=== PATIENT | male | born 1965 | race Caucasian/White ===

== ENCOUNTER 2018-03-05 13:30 | Emergency (ER) | payer OTHER ==
[~2018-03-05] VITALS: Wt 104.3 kg
[2018-03-05 14:07] LABS: BASO # 0.2 10*3/uL (0.0-0.1); BASO % 1.7 % (0.0-1.0); EOS # 0.2 10*3/uL (0.0-0.4); EOS % 1.5 % (1.0-4.0); HEMATOCRIT 46.8 % (42.0-52.0); HEMOGLOBIN 15.8 g/dl (14.0-18.0); LYMPH # 2.5 10*3/uL (1.3-4.4); LYMPH % 23.4 % (27.0-41.0); MEAN CORPUSCULAR HGB 34.4 pg (27.0-31.0); MEAN CORPUSCULAR HGB CONC 33.8 g/dl (33.0-37.0); MEAN PLATELET VOLUME 9.5 fl (9.6-12.3); MONO # 0.9 10*3/uL (0.1-1.0); MONO % 8.2 % (3.0-9.0); NEUT # 6.9 10*3/uL (2.3-7.9); PLATELET COUNT AUTOMATED 260 10*3/uL (130-400); RED BLOOD COUNT 4.59 10*6/uL (4.50-5.90); WHITE BLOOD COUNT 10.8 10*3/uL (4.8-10.8)
[2018-03-05 14:24] LABS: ALBUMIN 3.4 gm/dl (3.1-4.5); ALKALINE PHOSPHATASE 58 U/L (45-117); BUN 15 mg/dl (7-24); CHLORIDE 107 mmol/L (98-107); CREATININE 1.02 mg/dL (0.70-1.30); POTASSIUM 4.2 mmol/L (3.5-5.1); SGOT/AST 33 IU/L (3-35); SGPT/ALT 68 U/L (12-78); SODIUM 138 mmol/L (136-145); TOTAL PROTEIN 6.7 gm/dL (6.4-8.2)
[2018-03-05] MEDS ORDERED: OMNICEF300 MG PO (14:33)
== END 2018-03-05 14:37 | disposition home or self-care (01) ==
LOC: ED 13:30
PROVIDERS: Nurse Practitioner Family
DX: H66.91 Otitis media, unspecified, right ear (principal); F17.200 Nicotine dependence, unspecified, uncomplicated; Z88.5 Allergy status to narcotic agent

== ENCOUNTER → 2018-06-02 | Day surgery (SDC) | payer OTHER ==
[~2018-06-02] VITALS: Ht 187.9 cm; Wt 63.5 kg
[~2018-06-02] MED LIST: BLOOD PRESSURE; ELIQUIS5 M1 PO; ENTRESTO 97 MG1 EACH PO; METOPROLOL SUCC50 M1 PO; OMNICEF300 MG PO
[2018-06-02 12:57] VITALS: BP 118/82
[2018-06-02 13:58] VITALS: BP 105/76
[2018-06-02 14:13] VITALS: BP 115/72
== END | disposition home or self-care (01) ==
LOC: SDC 06-01 10:15
DX: I11.0 Hypertensive heart disease with heart failure (principal); I50.1 Left ventricular failure, unspecified; I48.91 Unspecified atrial fibrillation; Z79.899 Other long term (current) drug therapy; Z88.8 Allergy status to other drugs, medicaments and biological substances; Z72.0 Tobacco use; Z79.01 Long term (current) use of anticoagulants; Z98.890 Other specified postprocedural states

== ENCOUNTER → 2018-08-29 | Outpatient (CLI) | payer OTHER | END | disposition home or self-care (01) | LOC: CARD 12:00 | DX: I50.43 Acute on chronic combined systolic (congestive) and diastolic (congestive) heart failure (principal); I48.91 Unspecified atrial fibrillation ==

== ENCOUNTER 2019-05-04 09:55 | Emergency (ER) | payer OTHER ==
[~2019-05-04] VITALS: Wt 122.5 kg
[2019-05-04 10:48] LABS: HEMATOCRIT 43.8 % (42.0-52.0); HEMOGLOBIN 15.3 g/dl (14.0-18.0); MEAN CELL VOLUME 103.8 fl (80.0-94.0); MEAN CORPUSCULAR HGB 36.3 pg (27.0-31.0); MEAN CORPUSCULAR HGB CONC 34.9 g/dl (33.0-37.0); MEAN PLATELET VOLUME 8.8 fl (9.6-12.3); PLATELET COUNT AUTOMATED 227 10*3/uL (130-400); RED BLOOD COUNT 4.22 10*6/uL (4.50-5.90); RED CELL DISTRI WIDTH 11.3 % (0-14.5); WHITE BLOOD COUNT 14.2 10*3/uL (4.8-10.8)
[2019-05-04 11:06] LABS: TOTAL CELLS COUNTED 100 #CELLS
[2019-05-04 11:17] LABS: PLATELET SUFFICIENCY NORMAL (NORMAL)
[2019-05-04 11:59] LABS: ALBUMIN 3.8 gm/dl (3.1-4.5); ALKALINE PHOSPHATASE 70 U/L (45-117); BUN 11 mg/dl (7-24); CHLORIDE 97 mmol/L (98-107); POTASSIUM 4.5 mmol/L (3.5-5.1); SGOT/AST 20 IU/L (3-35); SGPT/ALT 53 U/L (12-78); SODIUM 132 mmol/L (136-145); TOTAL PROTEIN 7.8 gm/dL (6.4-8.2)
[2019-05-04] MEDS ORDERED: CLINDAMYCIN HC300 MG PO (14:19)
[2019-05-05] MEDS ORDERED: ANAPROX DS550 MG PO (19:38)
== END 2019-05-04 14:34 | disposition home or self-care (01) ==
LOC: ED 09:55
PROVIDERS: Physician Assistant
DX: K04.7 Periapical abscess without sinus (principal); F17.200 Nicotine dependence, unspecified, uncomplicated; Z88.1 Allergy status to other antibiotic agents; Z88.5 Allergy status to narcotic agent; Z79.899 Other long term (current) drug therapy

== ENCOUNTER 2019-05-05 19:24 | Emergency (ER) | payer OTHER ==
[~2019-05-05] VITALS: Ht 187.9 cm; Wt 122.5 kg
[~2019-05-05 19:24] MED LIST changes: +CLINDAMYCIN HC300 MG PO
[2019-05-05] MEDS ORDERED: ANAPROX DS550 MG PO (19:38)
== END 2019-05-05 19:55 | disposition home or self-care (01) ==
LOC: ED 19:24
DX: K04.7 Periapical abscess without sinus (principal); F17.200 Nicotine dependence, unspecified, uncomplicated; Z79.2 Long term (current) use of antibiotics; Z88.1 Allergy status to other antibiotic agents; Z88.5 Allergy status to narcotic agent; Z79.899 Other long term (current) drug therapy

== ENCOUNTER 2019-05-07 01:27 | Inpatient (IN) | payer OTHER ==
[~2019-05-07] VITALS: Ht 187.9 cm; Wt 120.9 kg
[2019-05-07] VITALS (7 sets, daily range): BP systolic 99–136; BP diastolic 60–77
--- NOTE | ~2019-05-07 | CON ---
[place], [place] REPORT OF CONSULTATION NAME: LORNA GAYTAN UNIT #: [id number] ROOM: 531 DOCTOR: KARUNA WIN DMD BIRTHDATE: [birth year] DOS: 05/07/2019 HISTORY OF PRESENT ILLNESS: The patient was admitted for a left-sided facial swelling. The patient states that he was seen at his private dentist for extraction of teeth on the lower left and was referred to the ER due to the swelling noted and difficulty breathing and swallowing. The patient states that there has been an improvement in his dyspnea and dysphagia after antibiotic therapy; however, the swelling persists and there is substantial trismus. On exam, moderate left-sided facial swelling extending from the zygomatic arch down to the inferior border of the mandible. Substantial pain on palpation is noted. The patient has roughly 10 mm maximum opening due to trismus. Intraoral exam is difficult due to limited opening. Intraorally, multiple caries noted including teeth caries to the gumline in obvious need of extraction. Minimal buccal space swelling is noted and the peak area of tenderness is submandibular extraorally. Unable to palpate sublingual area, submental area. RECOMMENDATIONS: Recommend the patient be referred to an oral surgeon or ENT for potential extraoral drainage and then extraction of the offending teeth once the trismus has cleared. KARUNA WIN DMD CM:CONSTR:REPORT OF CONSULTATION 1156 05/07/19 2337 interface
[~2019-05-07 01:27] MED LIST changes: +ANAPROX DS550 MG PO
[2019-05-07 02:40] LABS: BASO # 0.1 10*3/uL (0.0-0.1); BASO % 0.8 % (0.0-1.0); EOS # 0.1 10*3/uL (0.0-0.4); EOS % 0.8 % (1.0-4.0); HEMOGLOBIN 14.2 g/dl (14.0-18.0); LYMPH # 2.5 10*3/uL (1.3-4.4); LYMPH % 17.3 % (27.0-41.0); MEAN CELL VOLUME 104.9 fl (80.0-94.0); MEAN CORPUSCULAR HGB 36.3 pg (27.0-31.0); MEAN CORPUSCULAR HGB CONC 34.6 g/dl (33.0-37.0); MEAN PLATELET VOLUME 8.8 fl (9.6-12.3); MONO # 1.4 10*3/uL (0.1-1.0); MONO % 9.4 % (3.0-9.0); NEUT # 10.5 10*3/uL (2.3-7.9); NEUT % 71.3 % (47.0-73.0); PLATELET COUNT AUTOMATED 242 10*3/uL (130-400); RED BLOOD COUNT 3.91 10*6/uL (4.50-5.90); RED CELL DISTRI WIDTH 11.2 % (0-14.5); WHITE BLOOD COUNT 14.7 10*3/uL (4.8-10.8)
[2019-05-07 02:54] LABS: ALBUMIN 3.2 gm/dl (3.1-4.5); ALKALINE PHOSPHATASE 63 U/L (45-117); BUN 9 mg/dl (7-24); CHLORIDE 96 mmol/L (98-107); CREATININE 0.92 mg/dL (0.70-1.30); POTASSIUM 4.2 mmol/L (3.5-5.1); SGOT/AST 11 IU/L (3-35); SGPT/ALT 36 U/L (12-78); SODIUM 130 mmol/L (136-145); TOTAL PROTEIN 7.2 gm/dL (6.4-8.2)
[2019-05-07] MEDS ORDERED: METOPROLOL SUC100 M1 PO (07:33)
[2019-05-07] MEDS ORDERED: DIGOXIN250 MCG PO (07:33)
--- NOTE | 2019-05-07 08:46 | NUR ---
DR. WIN IN TO SEE PATIENT RE: PLAN OF CARE, PER DR. WIN, HE IS UNABLE TO REMOVE THE AFFECTED TOOTH AT THIS TIME DUE TO THE SURROUNDING ABSCESS AND RECOMMENDS A SURGERY CONSULT HERE VS. TRANSFER OUT.
--- NOTE | 2019-05-07 08:50 | NUR ---
Time: 849 A 53 year old MALE admitted to 5E under services of ANABELLA SAM DO. Pt. arrived via stretcher from ER. Chief complaint: LEFT SIDE FACIAL PAIN AND SWELLING DUE TO DENTAL ABSCESS. KIRT FLOREZ
--- NOTE | 2019-05-07 09:05 | NUR ---
DR. CLEMENTE NOTIFIED OF CONSULT RE: DENTAL ABSCESS.
--- NOTE | 2019-05-07 09:32 | NUR ---
DR. CLEMENTE IN TO SEE PATIENT RE: PLAN OF CARE, SUGGESTS TRANSFERRING PATIENT TO A FACILITY THAT HAS MAXILOFACIAL SURGEON. DR. LEW NOTIFIED, IS PREPARING TO ARRANGE A TRANSFER.
--- NOTE | 2019-05-07 14:39 | NUR ---
ADMINISTERED PO TYLENOL 975MG X 1 ORDERED AT THIS TIME.
--- NOTE | 2019-05-07 15:15 | NUR ---
PO TYLENOL NOT EFFECTIVE FOR LEFT FACIAL PAIN, PER PATIENT.
--- NOTE | 2019-05-07 15:36 | NUR ---
ADMINISTERED IV TORADOL 30MG X 1 ORDERED.
--- NOTE | 2019-05-07 16:26 | NUR ---
IV TORADOL EFFECTIVE, PER PATIENT.
--- NOTE | 2019-05-07 19:51 | NUR ---
ASSESSMENT COMPLETE AT THIS TIME. PT LYING IN BED ON RIGHT SIDE. PT STATES THAT HE DOES NOT HAVE PAIN AT THIS TIME. RESPIRAITONS EASY AND UNLABORED ON ROOM AIR. WILL CONTINUE TO MONITOR PT. CALL LIGHTIN REACH.
[2019-05-08] VITALS: BP 108/55
--- NOTE | 2019-05-08 03:30 | NUR ---
NOTIFIED DR PRATER THAT PT IS C/O PAIN TO LEFT SIDE OF FACE AND STATES THAT TYLENOL WILL NOT HELP. NEW ORDERS RECEIVED FOR 30 MG TORADOL VIA IV X 1 NOW. WILL NOTIFY PATIENT OF NEW ORDERS AND MEDICATE PT WHEN AVAILABLE TO PULL FROM [place].
[2019-05-08 03:31] LABS: BASO # 0.1 10*3/uL (0.0-0.1); EOS # 0.2 10*3/uL (0.0-0.4); EOS % 2.2 % (1.0-4.0); HEMATOCRIT 36.8 % (42.0-52.0); HEMOGLOBIN 12.5 g/dl (14.0-18.0); LYMPH # 2.4 10*3/uL (1.3-4.4); MEAN CELL VOLUME 106.1 fl (80.0-94.0); MEAN PLATELET VOLUME 8.4 fl (9.6-12.3); MONO # 1.1 10*3/uL (0.1-1.0); MONO % 10.2 % (3.0-9.0); NEUT # 6.5 10*3/uL (2.3-7.9); PLATELET COUNT AUTOMATED 219 10*3/uL (130-400); RED BLOOD COUNT 3.47 10*6/uL (4.50-5.90); RED CELL DISTRI WIDTH 11.2 % (0-14.5); WHITE BLOOD COUNT 10.4 10*3/uL (4.8-10.8)
[2019-05-08 03:43] LABS: ACT PARTIAL THROMBO TIME 32.9 SECONDS (20.0-32.1); INTERNATIONAL NORM RATIO 1.1 (2.0-3.5)
[2019-05-08 03:58] LABS: CHLORIDE 103 mmol/L (98-107); CHOLESTEROL 142 mg/dL (<200); CREATININE 0.82 mg/dL (0.70-1.30); HDL CHOLESTEROL 48 mg/dl (40-60); LDL CHOLESTEROL 77 mg/dL (9-159); POTASSIUM 4.5 mmol/L (3.5-5.1); SODIUM 137 mmol/L (136-145); TRIGLYCERIDES 85 mg/dl (<150); VLDL CHOLESTEROL 17 mg/dL (6-40)
--- NOTE | 2019-05-08 04:04 | NUR ---
PT GIVEN 30 MG TORADOL AT THIS TIME FOR PAIN TO LEFT SIDE OF FACE. WILL MONITOR FOR EFFECTIVENESS. CALL LIGHT IN REACH.
[2019-05-08 04:07] LABS: BUN 8 mg/dl (7-24)
--- NOTE | 2019-05-08 04:42 | NUR ---
[facility] NURSE CALLS FOR UPDATE ON PT AT THIS TIME. NURSE STATES THAT THERE STILL IS NOT A BED AVAILABLE BUT STATES THAT SHE WILL CALL WHEN A BED IS AVAILABLE.
[2019-05-08 07:23] LABS: VITAMIN D, 25-HYDROXY 23.9 ng/mL (30-100)
[2019-05-08 08:00] VITALS: BP 113/73
--- NOTE | 2019-05-08 08:08 | NUR ---
MEDICATED WITH PRN PO TYLENOL FOR TEMP. 100.0
--- NOTE | 2019-05-08 09:47 | NUR ---
ONE CALL RIVKAY CALLED IN; BED AT [facility] STILL NOT AVAILABLE AT THIS TIME, THE FACILITY WILL CALL BACK WHEN BED AVAILABLE.
--- NOTE | 2019-05-08 11:29 | NUR ---
[facility] CALLED WITH BED NUMBER AND PHONE NUMBER TO RECEIVING UNIT. PATIENT WILL BE ACCEPTED BY THE HOSPITALIST TEAM THERE UNDER DR. BARR. REPORT CALLED TO RECEIVING NURSE AT [facility]. PATIENT AND FAMILY NOTIFIED, HOME MEDS RETURNED TO THE PATIENT. AMBULANCE SERVICE TO ARRIVE FOR TRANSPORTATION DISPATCHER IN 20 MINUTES FROM NOW.
--- NOTE | 2019-05-08 11:51 | NUR ---
PATIENT TRANSFERRED BY [facility] AMBULANCE SERVICE TO [facility] AT THIS TIME.
--- NOTE | 2019-05-08 11:53 | NUR ---
MARKETING OPERATIONS MANAGER called patient insurance to see if he had any travel benefits upon discharge. Insurance stated the patient does not have any covered travel benefits. -SUSAN Gilliland
--- NOTE | 2019-05-08 12:38 | NUR ---
Sign Language Teacher in to talk to patient. Patient states lives at HOME with FRIEND. There are FEW steps in the home. Physician: MICHAEL Pharmacy: [facility] Home health services: NONE Patient's level of ADLs: INDEPENDENT Patient has working utilities: YES DME: NONE Follow-up physician's appointment after d/c: WILL BE MADE BY HOSPITALIST NURSE DIRECTOR ON DISCHARGE. Does patient want to access PORTAL?: NO Discharge plan PT LIVES AT HOME AND STATES HE IS INDEPENDENT IN CARE. PT IS BEING DISCHARGED TO [facility] TODAY. PT IS CONCERNED ABOUT GOING TO [facility] AND STATES I DON'T KNOW HOW I AM GOING TO GET HOME WHEN I AM DISCHARGED FROM [facility]. BEADER TENDER CHECKED WITH PT INSURANCE BUT HE DOES NOT HAVE TRAVEL BENEFITS. EXPLAINED TO PT NEED TO GO TO [facility] FOR TREATMENT. PT STATES HE UNDERSTANDS AND IS WILLING TO GO. WILL CONTINUE TO FOLLOW. CADEN VARELA
== END 2019-05-08 11:51 | disposition other institution (70) | DRG 158 ==
LOC: ED 01:27 → 5E 06:46 → EDHOLD 06:46 → 5E 06:59
PROVIDERS: Emergency Medicine; ADMIT Internal Medicine
DX: K04.7 Periapical abscess without sinus (principal); I50.42 Chronic combined systolic (congestive) and diastolic (congestive) heart failure; L03.211 Cellulitis of face; D53.9 Nutritional anemia, unspecified; E53.8 Deficiency of other specified B group vitamins; E55.9 Vitamin D deficiency, unspecified; M60.9 Myositis, unspecified; I48.91 Unspecified atrial fibrillation; Z88.5 Allergy status to narcotic agent; Z88.1 Allergy status to other antibiotic agents; Z82.49 Family history of ischemic heart disease and other diseases of the circulatory system; Z79.84 Long term (current) use of oral hypoglycemic drugs

== ENCOUNTER 2019-06-11 13:59 | Inpatient (IN) | payer OTHER ==
[2019-06-11] VITALS (26 sets, daily range): BP systolic 79–131; BP diastolic 46–65
[~2019-06-11] VITALS: Ht 187.9 cm; Wt 117.9 kg
--- NOTE | ~2019-06-11 | EKG ---
[place], [place] ELECTROCARDIOGRAM REPORT NAME: LORNA GAYTAN UNIT #: [id number] ROOM: 507 DOCTOR: KATIE DRAFT REPORT BIRTHDATE: [birth year] [facility] Test Date: 2019-06-11 Test Time: 19:58:18 Pat Name: LORNA GAYTAN Department: Room: 507 Gender: M Limousine Rental Clerk: Trina Gold : 1965 Requested By: HARRY GOMEZ Order Number: [id number] Reading MD: Ruperto Blackburn MD Measurements Intervals [place] Rate: 95 P: [place]: QRS: 58 QRSD: 80 T: 9 QT: 307 QTc: 386 Interpretive Statements Atrial fibrillation Low voltage, precordial leads Nonspecific repol abnormality, diffuse leads Compared to ECG 03/15/2018 07:01:21 Low QRS voltage now present Early repolarization now present Electronically Signed On 06-13-2019 17:21:56 PDT by Ruperto Blackburn MD CM:EKGRPT:ELECTROCARDIOGRAM REPORT [id number] 1721 HARRY WILSON DRAFT REPORT HARRY GOMEZ M.D.
--- NOTE | ~2019-06-11 | EKG ---
[place], [place] ELECTROCARDIOGRAM REPORT NAME: LORNA GAYTAN UNIT #: [id number] ROOM: 507 DOCTOR: KATIE DRAFT REPORT BIRTHDATE: [birth year] [facility] Test Date: 2019-06-11 Test Time: 17:11:29 Pat Name: LORNA GAYTAN Department: Room: 507 Gender: M Salt Refiner: : 1965 Requested By: HARRY GOMEZ Order Number: [id number] Reading MD: Ruperto Blackburn MD Measurements Intervals [place] Rate: 125 P: [place]: QRS: 45 QRSD: 84 T: -77 QT: 314 QTc: 453 Interpretive Statements Atrial fibrillation with RVR Low voltage, precordial leads RSR' in V1 or V2, probably normal variant Nonspecific repol abnormality, diffuse leads Compared to ECG 03/15/2018 07:01:21 Ventricular premature complex(es) now present Low QRS voltage now present RSR' in V1 or V2 now present Early repolarization now present Electronically Signed On 06-13-2019 17:21:15 PDT by Ruperto Blackburn MD CM:EKGRPT:ELECTROCARDIOGRAM REPORT 1711 1721 HARRY WILSON DRAFT REPORT HARRY GOMEZ M.D.
--- NOTE | ~2019-06-11 | EKG ---
[place], [place] ELECTROCARDIOGRAM REPORT NAME: LORNA GAYTAN UNIT #: [id number] ROOM: 507 DOCTOR: KATIE DRAFT REPORT BIRTHDATE: [birth year] [facility] Test Date: 2019-06-11 Test Time: 14:01:20 Pat Name: LORNA GAYTAN Department: Room: 507 Gender: M Contour Stitcher: : 1965 Requested By: HARRY GOMEZ Order Number: [id number] Reading MD: Ruperto Blackburn MD Measurements Intervals [place] Rate: 190 P: [place]: QRS: 52 QRSD: 80 T: -85 QT: 243 QTc: 432 Interpretive Statements Atrial fibrillation with rapid V-rate Low voltage, precordial leads Repolarization abnormality, prob rate related Compared to ECG 03/15/2018 07:01:21 Low QRS voltage now present Early repolarization now present Electronically Signed On 06-13-2019 17:20:26 PDT by Ruperto Blackburn MD CM:EKGRPT:ELECTROCARDIOGRAM REPORT 1401 1720 HARRY WILSON DRAFT REPORT HARRY GOMEZ M.D.
[~2019-06-11 13:59] MED LIST changes: +DIGOXIN250 MCG PO; +METOPROLOL SUC100 M1 PO
[2019-06-11 14:28] LABS: BASO # 0.1 10*3/uL (0.0-0.1); BASO % 0.5 % (0.0-1.0); EOS # 0.1 10*3/uL (0.0-0.4); EOS % 0.7 % (1.0-4.0); HEMATOCRIT 34.3 % (42.0-52.0); HEMOGLOBIN 11.7 g/dl (14.0-18.0); LYMPH # 1.4 10*3/uL (1.3-4.4); MEAN CELL VOLUME 102.7 fl (80.0-94.0); MEAN CORPUSCULAR HGB CONC 34.1 g/dl (33.0-37.0); MEAN PLATELET VOLUME 9.8 fl (9.6-12.3); MONO # 1.4 10*3/uL (0.1-1.0); MONO % 10.7 % (3.0-9.0); NEUT # 9.8 10*3/uL (2.3-7.9); NEUT % 76.3 % (47.0-73.0); PLATELET COUNT AUTOMATED 158 10*3/uL (130-400); RED BLOOD COUNT 3.34 10*6/uL (4.50-5.90); RED CELL DISTRI WIDTH 11.7 % (0-14.5); WHITE BLOOD COUNT 12.9 10*3/uL (4.8-10.8)
[2019-06-11 14:38] LABS: ACT PARTIAL THROMBO TIME 39.3 SECONDS (20.0-32.1); INTERNATIONAL NORM RATIO 1.3 (2.0-3.5)
[2019-06-11 14:44] LABS: ALBUMIN 2.3 gm/dl (3.1-4.5); ALKALINE PHOSPHATASE 76 U/L (45-117); BUN 36 mg/dl (7-24); CHLORIDE 103 mmol/L (98-107); CREATININE 2.66 mg/dL (0.70-1.30); POTASSIUM 3.8 mmol/L (3.5-5.1); SGOT/AST 46 IU/L (3-35); SGPT/ALT 67 U/L (12-78); SODIUM 132 mmol/L (136-145); TOTAL PROTEIN 7.1 gm/dL (6.4-8.2)
[2019-06-11 14:52] LABS: TROPONIN I < 0.015 ng/ml (<0.045)
--- NOTE | 2019-06-11 14:59 | NUR ---
VERBAL ORDER OF DR GOMEZ TO GIVE ANOTHER 10MG BOLUS OF CARDIZEM. HEART RATE BETWEEN 120-140. VITALS ARE STABLE. PROGRAMMED PUMP TO DELIVER 10MG BOLUS OVER 10 MINUTES PER VERBAL ORDER.
--- NOTE | 2019-06-11 15:20 | NUR ---
PATIENT AUTOMATIC BP READING 94/52. CYCLED AGAIN AND BP READING IS 92/53. THEN 87/50. MANUAL TAKEN AND 82/[address] GOMEZ AND VERBAL ORDER TO TITRATE CARDIZEM DRIP DOWN TO 5MG/HR AND IV FLUIDS HUNG.
--- NOTE | 2019-06-11 15:23 | NUR ---
REPORT GIVEN TO MAIDA ELLIOTT AT THIS TIME.
--- NOTE | 2019-06-11 15:40 | NUR ---
FIRST 250 ML BOLUS COMPLETED AT THIS TIME.
--- NOTE | 2019-06-11 15:46 | NUR ---
DR. GOMEZ NOTIFIED OF PT BP POST 1ST 250 ML NORMAL SALINE BOLUS- VERBAL ORDER TO GIVE SECOND 250 ML BOLUS AND STARTED AT THIS TIME
--- NOTE | 2019-06-11 16:02 | NUR ---
SECOND 250 ML BOLUS COMPLETED AT THIS TIME.
--- NOTE | 2019-06-11 17:48 | NUR ---
A 54, admitted to , under the services of ANABELLA Sam DO with a diagnosis of . Chief complaint is AF W/ RVR. Patient arrived via stretcher from ER. Monitor applied. Initial assessment completed. Vital signs taken and recorded. ANABELLA SAM DO notified of admission to the unit. Orders received. See assessment for past medical history, medications and allergies. Patient and/or family oriented to unit. [facility] ICCU visitation policy reviewed. Clothing/patient valuable form completed. EDILMA HODGES
--- NOTE | 2019-06-11 18:47 | NUR ---
MEDS RECONCILED,DR HALEY NOTIFIED CARDIOLOGY SERVICENOTIFIED OF CONSULT-REQUESTED CALL BACK
--- NOTE | 2019-06-11 19:13 | NUR ---
DR JUSTICE CALLED IN AND UPDATED
[2019-06-12] VITALS (10 sets, daily range): BP systolic 105–124; BP diastolic 52–76
--- NOTE | 2019-06-12 00:44 | NUR ---
PATIENT UP TO THE RESTROOM. HR 170S WHILE UP AMBULATING. HR 120S WHILE AT REST. PATIENT STATED HIS HEART RATE GOES UP WHEN HE IS SICK AND HE FEELS HOT LIKE HE HAS A TEMP. TEMP 99.2. OFFERED PATIENT TYLENOL BUT PATIENT DECLINED STATING "THAT WON'T DO NOTHING." WILL CONTINUE TO MONITOR HR. CALL LIGHT WITHIN REACH. CARDIZEM GTT RUNNING AT 10 MG/HR INTO RIGHT AC.
--- NOTE | 2019-06-12 02:47 | NUR ---
NOTIFIED DR. HENAO THAT PATIENT HAS A TEMP OF 100.3. RN OFFERED TYLENOL BUT PATIENT REFUSED STATING "TYLENOL WON'T FIX IT, I NEED AN ANTIBIOTIC". URINALYSIS ORDERED.
--- NOTE | 2019-06-12 03:05 | NUR ---
PATIENT INSTRUCTED ON THE NEED FOR URINE. EDUCATED PATIENT THAT THE DOCTORS WILL NEED TO FIND THE SOURCE OF INFECTION TO BE ABLE TO PRESCRIBE THE CORRECT ANTIBIOTICS. PATIENT VERBALIZED UNDERSTANDING. CARDIZEM GTT INCREASED FROM 10 MG/HR TO 15 MG/HR.
[2019-06-12 03:23] LABS: BILIRUBIN NEGATIVE (NEGATIVE); BLOOD 3+ (NEGATIVE); CLARITY CLOUDY (CLEAR); COLOR RED (YELLOW); GLUCOSE NEGATIVE (NEGATIVE); KETONE NEGATIVE (NEGATIVE); LEUKO ESTERASE 2+ (NEGATIVE); NITRITE POSITIVE (NEGATIVE); PH 5.5 (5.0-9.0); UROBILINOGEN 0.2 E.U./dl (0.2-1.0)
[2019-06-12 03:32] LABS: BACTERIA 2+; RBC TNTC rbc/hpf (0-2); WBC 41-50 wbc/hpf (0-5)
--- NOTE | 2019-06-12 04:36 | NUR ---
24 HR chart check completed.
[2019-06-12 06:53] LABS: HEMOGLOBIN 10.8 g/dl (14.0-18.0); MEAN CELL VOLUME 103.6 fl (80.0-94.0); MEAN CORPUSCULAR HGB CONC 33.8 g/dl (33.0-37.0); MEAN PLATELET VOLUME 10.2 fl (9.6-12.3); PLATELET COUNT AUTOMATED 172 10*3/uL (130-400); RED BLOOD COUNT 3.09 10*6/uL (4.50-5.90); WHITE BLOOD COUNT 11.1 10*3/uL (4.8-10.8)
[2019-06-12 07:09] LABS: CREATININE 2.51 mg/dL (0.70-1.30); INTERNATIONAL NORM RATIO 1.3 (2.0-3.5); POTASSIUM 3.5 mmol/L (3.5-5.1); TOTAL PROTEIN 6.7 gm/dL (6.4-8.2)
[2019-06-12 07:18] LABS: BASOPHILS 1 % (0-1); PLATELET SUFFICIENCY NORMAL (NORMAL); TOTAL CELLS COUNTED 100 #CELLS
--- NOTE | 2019-06-12 09:00 | NUR ---
RESTING IN BED WITH VISITORS AT HIS SIDE. RESP-EASY AND REGULAR. NO C/O AT THIS TIME. CALL LIGHT IN REACH. SEE SHIFT ASSESSMENT.
--- NOTE | 2019-06-12 10:20 | NUR ---
CARDIZEM DRIP DECREASED BY 5. HR-90-LOW 100'S. CALL LIGHT IN REACH.
--- NOTE | 2019-06-12 10:30 | NUR ---
Advanced Practice Nurse in to talk to patient. Patient states lives at home with a friend. There are 6 steps in the home. Physician: Dr. Aiden Lazcano Pharmacy: [facility] Home health services: none Patient's level of ADLs: INDEPENDENT Patient has working utilities: yes DME: none Follow-up physician's appointment after d/c: will be made by the hospitalist nurse director upon discharge Does patient want to access PORTAL?: no Discharge plan discussed with patient and family who is sitting at his bedside. He lives at home with a friend. He is independent in his ADLs and ambulation. Discussed home health care services and he denies any home needs at this time. When medically stable he will be discharged to home. He will drive himself home as his car is here at the hospital. FELIX FAUSTIN
--- NOTE | 2019-06-12 10:50 | NUR ---
PT TOLERATED ROUTINE IV WITH NO PROBLEM. CALL LIGHT IN REACH. VISITORS AT HIS SIDE.
--- NOTE | 2019-06-12 11:46 | NUR ---
CALLED DR. ROMAN CALLED REGRADING CONSULT THEY WILL NOTIFY HIM.
--- NOTE | 2019-06-12 12:25 | NUR ---
RESTING IN BED. NO C/O AT THIS TIME. CALL LIGHT IN REACH.
--- NOTE | 2019-06-12 14:12 | NUR ---
BP 108/56, HR-80-90'S. CARDIZEM DRIP DECREASED BY 5MG. NO C/O AT THIS TIME. CALL LIGHT IN REACH.
--- NOTE | 2019-06-12 15:46 | NUR ---
CALLED REGARDING HR MAINTAINING IN THE 70'S. A-FIB PER CM. BP 105/56. CARDIZEM GTT WAS DECREASED TO 5 BY PREVIOUS NURSE AT 215PM. CARDIZEM GTT TO BE TURNED OFF AT THIS TIME PER . WILL CONTINUE TO MONITOR.
--- NOTE | 2019-06-12 18:35 | NUR ---
HR REMAINS CONTROLLED. HR 70-80'S. WILL CONTINUE TO MONITOR. NO VOICED COMPLAINTS.
--- NOTE | 2019-06-12 20:36 | NUR ---
Shift chart check completed.24 HR chart check completed.
--- NOTE | 2019-06-12 22:49 | NUR ---
PATIENT MEDICATED WITH RESTORIL FOR COMPLAINTS OF RESTLESSNESS, AND INABILITY TO SLEEP. RN WILL MONITOR FOR EFFECTIVENESS
[2019-06-13] VITALS: BP 121/64
[2019-06-13 06:32] LABS: BASO % 0.4 % (0.0-1.0); EOS # 0.2 10*3/uL (0.0-0.4); EOS % 2.6 % (1.0-4.0); HEMATOCRIT 32.1 % (42.0-52.0); HEMOGLOBIN 10.7 g/dl (14.0-18.0); LYMPH # 1.8 10*3/uL (1.3-4.4); LYMPH % 19.7 % (27.0-41.0); MEAN CELL VOLUME 103.5 fl (80.0-94.0); MEAN CORPUSCULAR HGB 34.5 pg (27.0-31.0); MEAN CORPUSCULAR HGB CONC 33.3 g/dl (33.0-37.0); MEAN PLATELET VOLUME 9.9 fl (9.6-12.3); MONO # 1.1 10*3/uL (0.1-1.0); NEUT % 63.9 % (47.0-73.0); PLATELET COUNT AUTOMATED 205 10*3/uL (130-400); RED CELL DISTRI WIDTH 11.9 % (0-14.5); WHITE BLOOD COUNT 9.3 10*3/uL (4.8-10.8)
[2019-06-13 06:53] LABS: CREATININE 1.94 mg/dL (0.70-1.30); POTASSIUM 3.7 mmol/L (3.5-5.1)
[2019-06-13 08:00] VITALS: BP 124/65
[2019-06-13 11:59] VITALS: BP 120/63
[2019-06-13 16:00] VITALS: BP 107/70
--- NOTE | 2019-06-13 16:21 | NUR ---
NOTIFIED REGARDING PATIENT'S REQUEST FOR SLEEPING PILL. RESTORIL NOT EFFECTIVE PER PT. AWAITING PHYSICIAN ORDERS.
[2019-06-13 20:00] VITALS: BP 110/71
--- NOTE | 2019-06-13 22:30 | NUR ---
MEDICATED WITH ATIVAN FOR ANXIETY & RESTORIL FOR INSOMNIA.
[2019-06-14] VITALS: BP 115/61
--- NOTE | 2019-06-14 01:30 | NUR ---
RESTING IN BED WITH EYES CLOSED; MEDICATIONS GIVEN EARLIER APPARENTLY EFFECTIVE. CALL LIGHT WITHIN REACH.
[2019-06-14 06:14] LABS: HEMATOCRIT 33.7 % (42.0-52.0); HEMOGLOBIN 10.9 g/dl (14.0-18.0); MEAN CORPUSCULAR HGB 33.6 pg (27.0-31.0); MEAN CORPUSCULAR HGB CONC 32.3 g/dl (33.0-37.0); MEAN PLATELET VOLUME 9.8 fl (9.6-12.3); PLATELET COUNT AUTOMATED 251 10*3/uL (130-400); RED BLOOD COUNT 3.24 10*6/uL (4.50-5.90); RED CELL DISTRI WIDTH 11.9 % (0-14.5); WHITE BLOOD COUNT 8.4 10*3/uL (4.8-10.8)
[2019-06-14 06:27] LABS: ALBUMIN 1.9 gm/dl (3.1-4.5); CREATININE 1.58 mg/dL (0.70-1.30); TOTAL PROTEIN 6.2 gm/dL (6.4-8.2)
[2019-06-14 07:28] LABS: ATYPICAL LYMPHS 2 % (0-0); BASOPHILS 1 % (0-1); TOTAL CELLS COUNTED 100 #CELLS
[2019-06-14 07:29] LABS: PLATELET SUFFICIENCY NORMAL (NORMAL)
[2019-06-14 08:00] VITALS: BP 115/61
--- NOTE | 2019-06-14 08:30 | NUR ---
Academic Guidance Specialist in to see patient. No new needs or request at this time. He denies any home needs. When medically stable he will be discharged to home. Per multidisciplinary discharge planning meeting patient is a possible discharge today.
[2019-06-14 12:00] VITALS: BP 123/60
[2019-06-14] MEDS ORDERED: LEVAQUIN500 M2 PO (13:18)
[2019-06-14] MEDS ORDERED: TOPROL XL50 M1 PO (13:20)
[2019-06-14] MEDS ORDERED: METOPROLOL SUCC50 M1 PO (13:23)
--- NOTE | 2019-06-14 13:40 | NUR ---
Discharge instructions reviewed with patient/family. Patient receptive and verbalizes understanding. Follow-up care arranged. Written instructions given to patient/family. FARZANA ESTRADA
--- NOTE | 2019-06-14 13:43 | NUR ---
The Discharge Plan/Instructions have been completed.
== END 2019-06-14 13:43 | disposition home or self-care (01) | DRG 871 ==
LOC: ED 13:59 → 5E 16:56
PROVIDERS: Emergency Medicine; Student in an Organized Health Care Education/Training Program; ADMIT Internal Medicine
DX: A41.9 Sepsis, unspecified organism (principal); N17.0 Acute kidney failure with tubular necrosis; E43 Unspecified severe protein-calorie malnutrition; E87.1 Hypo-osmolality and hyponatremia; I50.42 Chronic combined systolic (congestive) and diastolic (congestive) heart failure; N39.0 Urinary tract infection, site not specified; I42.8 Other cardiomyopathies; I48.20 Chronic atrial fibrillation, unspecified; R73.9 Hyperglycemia, unspecified; B96.20 Unspecified Escherichia coli [E. coli] as the cause of diseases classified elsewhere; I48.21 Permanent atrial fibrillation; E86.0 Dehydration; E02 Subclinical iodine-deficiency hypothyroidism; R65.20 Severe sepsis without septic shock; E66.9 Obesity, unspecified; D72.810 Lymphocytopenia; D53.9 Nutritional anemia, unspecified; E53.8 Deficiency of other specified B group vitamins; E55.9 Vitamin D deficiency, unspecified; R74.0 Nonspecific elevation of levels of transaminase and lactic acid dehydrogenase [LDH]; Z88.1 Allergy status to other antibiotic agents; Z88.5 Allergy status to narcotic agent; Z82.49 Family history of ischemic heart disease and other diseases of the circulatory system; Z79.899 Other long term (current) drug therapy; Z87.891 Personal history of nicotine dependence; Z91.14 Patient's other noncompliance with medication regimen; Z68.34 Body mass index [BMI] 34.0-34.9, adult

== ENCOUNTER 2019-07-27 12:26 | Inpatient (IN) | payer OTHER ==
[~2019-07-27] VITALS: Ht 187.9 cm; Wt 126.2 kg
[2019-07-27] VITALS (31 sets, daily range): BP systolic 64–132; BP diastolic 0–78
[~2019-07-27 12:26] MED LIST changes: +LEVAQUIN500 M2 PO; +TOPROL XL50 M1 PO
--- NOTE | 2019-07-27 13:30 | NUR ---
PT IN A-FIB RVR IN THE 160-170'S. PT WITH KNOWN HX TAKES ELIQUIS AND TOPROL XL 150MG. NOTIFIED PROVIDER
--- NOTE | 2019-07-27 13:30 | NUR ---
PT A-FIB RVR, PT TEMP 102, BP 100/62. IV FLUIDS INFUSING WIDE. MORTIN AND TYENOL GIVEN. PT IS AOX3. RESPIRTIONS EASY. CALL LIGHT IN REACH WILL MONITOR.
[2019-07-27 13:41] LABS: HEMATOCRIT 38.7 % (42.0-52.0); HEMOGLOBIN 12.9 g/dl (14.0-18.0); MEAN CELL VOLUME 101.3 fl (80.0-94.0); MEAN CORPUSCULAR HGB 33.8 pg (27.0-31.0); MEAN CORPUSCULAR HGB CONC 33.3 g/dl (33.0-37.0); MEAN PLATELET VOLUME 9.2 fl (9.6-12.3); PLATELET COUNT AUTOMATED 255 10*3/uL (130-400); RED BLOOD COUNT 3.82 10*6/uL (4.50-5.90); RED CELL DISTRI WIDTH 12.7 % (0-14.5); WHITE BLOOD COUNT 21.1 10*3/uL (4.8-10.8)
[2019-07-27 13:43] LABS: BILIRUBIN NEGATIVE (NEGATIVE); BLOOD 2+ (NEGATIVE); CLARITY SL CLOUDY (CLEAR); COLOR YELLOW (YELLOW); GLUCOSE NEGATIVE (NEGATIVE); KETONE NEGATIVE (NEGATIVE); LEUKO ESTERASE 2+ (NEGATIVE); NITRITE NEGATIVE (NEGATIVE); PH 7.5 (5.0-9.0); SPECIFIC GRAVITY 1.015 (1.005-1.030); UROBILINOGEN 0.2 E.U./dl (0.2-1.0)
--- NOTE | 2019-07-27 13:50 | NUR ---
PT REMAINS IN A-FIB RVR 160'S, PT IS AOX3, RESPIRATINS EASY, BP 100/62 M. POX 100% RA. IV FLUIDS INFUSING WIDE PER ORDER, WILL MONITOR.
[2019-07-27 13:53] LABS: ACT PARTIAL THROMBO TIME 40.6 SECONDS (20.0-32.1); INTERNATIONAL NORM RATIO 1.2 (2.0-3.5)
[2019-07-27 13:55] LABS: ALBUMIN 3.2 gm/dl (3.1-4.5); ALKALINE PHOSPHATASE 64 U/L (45-117); BUN 14 mg/dl (7-24); CHLORIDE 102 mmol/L (98-107); CREATININE 1.48 mg/dL (0.70-1.30); LIPASE 51 U/L (73-393); POTASSIUM 4.4 mmol/L (3.5-5.1); SGOT/AST 9 IU/L (3-35); SGPT/ALT 22 U/L (12-78); SODIUM 132 mmol/L (136-145); TOTAL PROTEIN 7.9 gm/dL (6.4-8.2)
[2019-07-27 13:58] LABS: BASOPHILS 3 % (0-1); TOTAL CELLS COUNTED 100 #CELLS
[2019-07-27 13:58] LABS: BACTERIA 2+; RBC 21-30 rbc/hpf (0-2); WBC TNTC wbc/hpf (0-5)
[2019-07-27 13:59] LABS: PLATELET SUFFICIENCY NORMAL (NORMAL); POLYCHROMASIA SLIGHT; TOXIC GRANULATION SLIGHT
--- NOTE | 2019-07-27 14:55 | NUR ---
PT REPORTS HE IS STARTING TO "CHILL" TEMP 101.0. SLIGHT DECREASE SINCE FLUID INFUSION START. HR A-FIB RVR 140-150'S. RESPIRATIONS EASY.
--- NOTE | 2019-07-27 17:49 | NUR ---
IV LEVOPHED GTT STARTED FOR MANUAL BP 76/40. GTT STARTED AT 4 MICS/MIN 30CC/HR.
--- NOTE | 2019-07-27 17:49 | NUR ---
IV LEVOPHED GTT STARTED AT 4 MICS/MIN FOR MANUAL BP 76/40. PT'S IN TO VISIT WITH PT. UPDATED HER ON PT'S CONDITION AND PLAN OF CARE.
--- NOTE | 2019-07-27 18:00 | NUR ---
A 54, admitted to ICCU, under the services of TIERRA Keene DO with a diagnosis of UTI, SEPSIS,. Chief complaint is NOT FEELING WELL. Patient arrived via stretcher from ER. Monitor applied. Initial assessment completed. Vital signs taken and recorded. TIERRA KEENE DO notified of admission to the unit. Orders received. See assessment for past medical history, medications and allergies. Patient and/or family oriented to unit. [facility] ICCU visitation policy reviewed. Clothing/patient valuable form completed. MELANIE FUENTES
--- NOTE | 2019-07-27 18:04 | NUR ---
DR JUSTICE NOTIFIED OF CONSULT AND UPDATED ON PT'S CONDITION. NEW ORDERS RECEIVED.
[2019-07-27 18:32] LABS: PHOSPHOROUS 3.7 mg/dL (2.5-4.9)
--- NOTE | 2019-07-27 22:18 | NUR ---
PATIENT MEDICATED WITH RESTORIL PER RONA SINCLAIR FOR COMPLAINTS OF RESTLESSNESS AND INABILITY TO SLEEP. RN WILL CONTINUE TO MONITOR
[2019-07-28] VITALS (40 sets, daily range): BP systolic 95–136; BP diastolic 56–728
--- NOTE | 2019-07-28 00:15 | NUR ---
PATIENT MEDICATED WITH TYLENOL PER DRS ORDERS FOR ELEVATED TEMPERATURE.
--- NOTE | 2019-07-28 01:30 | NUR ---
DR JUSTICE CALLED REGARDING PATIENTS ELEVATED HEARTRATE. ORDER FOR 1 TIME DOSE OF DIGOXIN, SEE ORDER
--- NOTE | 2019-07-28 01:35 | NUR ---
PATIENT FEVER REDUCED, TYLENOL EFFECTIVE
--- NOTE | 2019-07-28 03:00 | NUR ---
PATIENT HEARTRATE HAS DECREASED TO 110-120'S BUT WITH ANY MOTION PATIENTS HEARTRATE INCREASES ONCE AGAIN.
[2019-07-28 04:59] LABS: BASO # 0.1 10*3/uL (0.0-0.1); BASO % 0.5 % (0.0-1.0); EOS # 0.1 10*3/uL (0.0-0.4); EOS % 0.4 % (1.0-4.0); HEMATOCRIT 34.9 % (42.0-52.0); HEMOGLOBIN 11.3 g/dl (14.0-18.0); LYMPH # 1.4 10*3/uL (1.3-4.4); LYMPH % 9.2 % (27.0-41.0); MEAN CELL VOLUME 102.6 fl (80.0-94.0); MEAN CORPUSCULAR HGB 33.2 pg (27.0-31.0); MEAN CORPUSCULAR HGB CONC 32.4 g/dl (33.0-37.0); MEAN PLATELET VOLUME 9.5 fl (9.6-12.3); MONO # 1.2 10*3/uL (0.1-1.0); NEUT # 12.4 10*3/uL (2.3-7.9); NEUT % 81.4 % (47.0-73.0); PLATELET COUNT AUTOMATED 189 10*3/uL (130-400); RED CELL DISTRI WIDTH 12.8 % (0-14.5); WHITE BLOOD COUNT 15.2 10*3/uL (4.8-10.8)
[2019-07-28 05:17] LABS: ALBUMIN 2.6 gm/dl (3.1-4.5); BUN 16 mg/dl (7-24); CHLORIDE 107 mmol/L (98-107); CREATININE 1.29 mg/dL (0.70-1.30); PHOSPHOROUS 2.5 mg/dL (2.5-4.9); POTASSIUM 4.2 mmol/L (3.5-5.1); SGOT/AST 8 IU/L (3-35); SGPT/ALT 17 U/L (12-78); SODIUM 135 mmol/L (136-145); TOTAL PROTEIN 6.7 gm/dL (6.4-8.2)
[2019-07-28 05:24] LABS: ALKALINE PHOSPHATASE 52 U/L (45-117); FREE T4 1.15 ng/dl (0.76-1.46)
--- NOTE | 2019-07-28 05:30 | NUR ---
PATIENT INCONTINENT OF LARGE BOWEL MOVEMENT IN BED. PATIENT STATES ITS THE ANTIBIOTICS. THAT HE ALWAYS HAS ISSUES. RN ASSISTED PATIENT WITH GETTING CLEANED UP AND CHANGING THE BED. FLOOR OF ROOM ALSO CLEANED UP AT THIS TIME. RN WILL MONITOR
--- NOTE | 2019-07-28 06:00 | NUR ---
AMIODARONE DRIP STARTED FOR CONTINUED ELEVATED HEARTRATE IN 170'S [address] LUNA ORDER
--- NOTE | 2019-07-28 06:05 | NUR ---
LEVOPHED OFF AT THIS TIME. RN WILL CONTINUE TO CHECK BLOOD PRESSURES FREQUEBNTLY
[2019-07-28 07:35] LABS: VITAMIN D, 25-HYDROXY 17.2 ng/mL (30-100)
--- NOTE | 2019-07-28 08:20 | NUR ---
TYLENOL ADMINISTERED PER RONA SINCLAIR FOR ELEVATED TEMPERATURE.
--- NOTE | 2019-07-28 08:25 | NUR ---
DR ROLLINS AND DR WATKINS ON FLORR ROUNDING ON PATIENT
--- NOTE | 2019-07-28 09:20 | NUR ---
CALL TO CARDIOLOGY AND MESSAGE LEFT
--- NOTE | 2019-07-28 09:25 | NUR ---
SPOKE WITH DR JAVIER REGARDING HEARTRATE, ORDERS RECIEVED FOR ANOTHER 150MG BOLUS NOW
--- NOTE | 2019-07-28 09:38 | NUR ---
DR JAVIER IN TO SEE PATIENT , ORDERS RECIEVED. RN WILL FOLLOW THROUGH
--- NOTE | 2019-07-28 10:45 | NUR ---
CONSULT CALLED TO INFECTIOUS DISEASE ANSWERING SERVICE. DR CUMMINGS REGIONAL PROJECT MANAGER. AWAITING CALL BACK
--- NOTE | 2019-07-28 11:00 | NUR ---
SPOKE TO DR CUMMINGS.
--- NOTE | 2019-07-28 12:39 | NUR ---
Amiodarone gtt decreased to 0.5 mg/min or 17.3 mL/hr per orders. BP stable, patient remains in afib RVR sustaining a HR of 115-125 bpm.
--- NOTE | 2019-07-28 12:43 | NUR ---
PT MEDICATED WITH TYLENOL PO FOR TEMP OF 102.1. DR WATKINS MADE AWARE.
--- NOTE | 2019-07-28 14:50 | NUR ---
PT'S TEMP 102.5 DESPITE BEING MEDICATED WITH TYLENOL. DR WATKINS NOTIFIED AND AND INFECTIOUS DISEASE DR CUMMINGS PAGED AT THIS TIME.
--- NOTE | 2019-07-28 15:57 | NUR ---
DR Ildefonso JAVIER NOTIFIED OF PT'S HR OF 140-150'S. MADE AWARE THAT PT DOES HAVE ELEVATED TEMP AT THIS TIME ALSO. NEW ORDER RECEIVED.
--- NOTE | 2019-07-28 16:17 | NUR ---
HR DOWN TO 108 AT THIS TIME AFTER IV LOPRESSOR 5MG GIVEN.
--- NOTE | 2019-07-28 20:11 | NUR ---
PATIENT TO AND FROM CT FOR SCANS WITHOUT INCIDENT. VITAL SIGNS REMAINED STABLE THROUGHOUT.
--- NOTE | 2019-07-28 21:45 | NUR ---
DR CALLED FOR SLEEPING PILL. PATIENT REQUESTING ATIVAN SINCE HE TAKES IT AT HOME. UPON LOOKING AT MEDICATION RECONCILLIATION AND MED LIT FROM PHARMACY, PATIENT DOES NOT.
--- NOTE | 2019-07-28 22:00 | NUR ---
PATIENT REFUSING SLEEPING PILL, STATES HE DOES NOT NEED A SLEEPING PILL. DR BUTTS
[2019-07-29] VITALS (12 sets, daily range): BP systolic 103–122; BP diastolic 54–80
--- NOTE | 2019-07-29 03:45 | NUR ---
Patient resting quietly with no c/o discomfort. Respirations easy and regular. Vital signs stable. No overt distress. VIV CEDILLO
[2019-07-29 04:56] LABS: HEMATOCRIT 31.5 % (42.0-52.0); HEMOGLOBIN 10.2 g/dl (14.0-18.0); MEAN CELL VOLUME 103.3 fl (80.0-94.0); MEAN CORPUSCULAR HGB 33.4 pg (27.0-31.0); MEAN CORPUSCULAR HGB CONC 32.4 g/dl (33.0-37.0); MEAN PLATELET VOLUME 9.6 fl (9.6-12.3); PLATELET COUNT AUTOMATED 197 10*3/uL (130-400); RED BLOOD COUNT 3.05 10*6/uL (4.50-5.90); RED CELL DISTRI WIDTH 12.7 % (0-14.5); WHITE BLOOD COUNT 11.7 10*3/uL (4.8-10.8)
[2019-07-29 05:12] LABS: ALBUMIN 2.3 gm/dl (3.1-4.5); ALKALINE PHOSPHATASE 50 U/L (45-117); BUN 10 mg/dl (7-24); CHLORIDE 106 mmol/L (98-107); CREATININE 1.08 mg/dL (0.70-1.30); SGOT/AST 11 IU/L (3-35); SGPT/ALT 16 U/L (12-78); SODIUM 138 mmol/L (136-145); TOTAL PROTEIN 6.6 gm/dL (6.4-8.2)
[2019-07-29 05:47] LABS: TOTAL CELLS COUNTED 100 #CELLS
[2019-07-29 05:48] LABS: BURR CELLS FEW; OVALOCYTES FEW; PLATELET SUFFICIENCY NORMAL (NORMAL)
--- NOTE | 2019-07-29 10:17 | NUR ---
AMIODARONE GTT DC'D AT THIS TIME.
[2019-07-30] VITALS: BP 106/55
--- NOTE | 2019-07-30 00:13 | NUR ---
PATIENT TOOK SLEEPING PILL PER PRN ORDER PATIENT HAS BEEN RESTING QUIETLY SICNE THEN NO COMPALINTS AT THIS TIME.
[2019-07-30 06:13] LABS: BASO # 0.1 10*3/uL (0.0-0.1); BASO % 0.7 % (0.0-1.0); EOS # 0.4 10*3/uL (0.0-0.4); EOS % 4.6 % (1.0-4.0); HEMATOCRIT 32.3 % (42.0-52.0); HEMOGLOBIN 10.3 g/dl (14.0-18.0); LYMPH # 2.7 10*3/uL (1.3-4.4); LYMPH % 28.2 % (27.0-41.0); MEAN CELL VOLUME 101.9 fl (80.0-94.0); MEAN CORPUSCULAR HGB 32.5 pg (27.0-31.0); MEAN CORPUSCULAR HGB CONC 31.9 g/dl (33.0-37.0); MEAN PLATELET VOLUME 9.3 fl (9.6-12.3); MONO # 1.1 10*3/uL (0.1-1.0); MONO % 11.8 % (3.0-9.0); NEUT # 5.1 10*3/uL (2.3-7.9); NEUT % 54.4 % (47.0-73.0); PLATELET COUNT AUTOMATED 218 10*3/uL (130-400); RED BLOOD COUNT 3.17 10*6/uL (4.50-5.90); RED CELL DISTRI WIDTH 12.4 % (0-14.5); WHITE BLOOD COUNT 9.4 10*3/uL (4.8-10.8)
[2019-07-30 06:31] LABS: ALBUMIN 2.2 gm/dl (3.1-4.5); BUN 12 mg/dl (7-24); CHLORIDE 108 mmol/L (98-107); CREATININE 0.96 mg/dL (0.70-1.30); POTASSIUM 4.3 mmol/L (3.5-5.1); SGOT/AST 16 IU/L (3-35); SGPT/ALT 28 U/L (12-78); SODIUM 138 mmol/L (136-145)
[2019-07-30 06:32] LABS: ALKALINE PHOSPHATASE 50 U/L (45-117); TOTAL PROTEIN 6.6 gm/dL (6.4-8.2)
[2019-07-30 08:00] VITALS: BP 112/74
[2019-07-30] MEDS ORDERED: TOPROL XL50 M1 PO (08:02)
--- NOTE | 2019-07-30 09:24 | NUR ---
DR MARIO IN TO SEE PT EARLIER. NO NEW ORDERS RECEIVED. PT DID STATE HE MAY SIGN OUT AMA IF NOT DISCHARGED.
--- NOTE | 2019-07-30 10:00 | NUR ---
PT REPORT GIVEN TO RECEIVING NURSE ON 4E. PT TRANSFERED TO 4E VIA BED.
[2019-07-30 12:00] VITALS: BP 128/78
--- NOTE | 2019-07-30 13:49 | NUR ---
Proof Coins Inspector in to talk to patient. Patient states lives at home with a friend. There are 12 steps in the home. Physician: Dr. Aiden Lazcano Pharmacy: [facility] Home health services: none Patient's level of ADLs: INDEPENDENT Patient has working utilities: yes DME: none Follow-up physician's appointment after d/c: will be made by the hospitalist nurse director upon discharge Does patient want to access PORTAL?: no Discharge plan discussed with patient and friend who is sitting at his bedside. He lives at home with friend. He is independent in his ADLs and ambulation. Discussed home health care services and he denies any home needs at this time. When medically stable he will be discharged to home. His friend will provide transportation on discharge. FELIX FAUSTIN
--- NOTE | 2019-07-30 14:19 | NUR ---
Nutritional Support Services Note: Pt is eating 100% of all meals. Receives a regular diet as ordered. Ht 6'2 Wt.278#. Dx of UTI, sepsis, afib. Encouraged him to continue to eat well. Discussed healthy eating. Encouraged increased fluids. Encouraged follow up if needed. No other Nutrition intervention needed at this time. Alicia Valentin Rdn Ld
[2019-07-30] MEDS ORDERED: OMNICEF300 MG PO (15:18)
--- NOTE | 2019-07-30 15:25 | NUR ---
ccdis Discharge instructions reviewed with patient/family. Patient receptive and verbalizes understanding. Follow-up care arranged. Written instructions given to patient/family. CRISTOBAL CARREON
== END 2019-07-30 15:59 | disposition home or self-care (01) | DRG 871 ==
LOC: ED 12:26 → 4E 15:23 → EDHOLD 15:23 → 4E 16:00 → ICCU 16:51 → 4E 07-30 10:19
PROVIDERS: Family Medicine; Hospitalist; Internal Medicine; Physician Assistant; ADMIT Emergency Medicine
DX: A41.9 Sepsis, unspecified organism (principal); N17.0 Acute kidney failure with tubular necrosis; R65.21 Severe sepsis with septic shock; E87.1 Hypo-osmolality and hyponatremia; N30.01 Acute cystitis with hematuria; I50.42 Chronic combined systolic (congestive) and diastolic (congestive) heart failure; I48.21 Permanent atrial fibrillation; I42.8 Other cardiomyopathies; E86.0 Dehydration; E02 Subclinical iodine-deficiency hypothyroidism; I11.0 Hypertensive heart disease with heart failure; B96.20 Unspecified Escherichia coli [E. coli] as the cause of diseases classified elsewhere; D64.9 Anemia, unspecified; I25.10 Atherosclerotic heart disease of native coronary artery without angina pectoris; R73.9 Hyperglycemia, unspecified; Z86.14 Personal history of Methicillin resistant Staphylococcus aureus infection; Z88.5 Allergy status to narcotic agent; Z88.1 Allergy status to other antibiotic agents; Z82.49 Family history of ischemic heart disease and other diseases of the circulatory system; Z87.891 Personal history of nicotine dependence; Z79.899 Other long term (current) drug therapy

== ENCOUNTER 2023-01-25 11:27 | Emergency (ER) | payer MEDICARE ==
[~2023-01-25] VITALS: Wt 136.1 kg
== END 2023-01-25 13:00 | disposition home or self-care (01) ==
LOC: ED 11:27
DX: M25.461 Effusion, right knee (principal); Z88.1 Allergy status to other antibiotic agents; Z88.5 Allergy status to narcotic agent; Z79.899 Other long term (current) drug therapy; Z79.2 Long term (current) use of antibiotics; Z87.891 Personal history of nicotine dependence

== ENCOUNTER → 2023-11-14 | Outpatient (CLI) | payer MEDICARE | END | disposition home or self-care (01) | LOC: ORTHO 02:45 | PROVIDERS: ATTEND Orthopaedic Surgery | DX: M17.11 Unilateral primary osteoarthritis, right knee (principal); M25.461 Effusion, right knee; M16.11 Unilateral primary osteoarthritis, right hip; M77.31 Calcaneal spur, right foot; M25.761 Osteophyte, right knee ==

== ENCOUNTER → 2024-07-30 | Outpatient (CLI) | payer MEDICARE | END | disposition home or self-care (01) | LOC: US 12:30 | PROVIDERS: ATTEND Urology | DX: N43.2 Other hydrocele (principal); N28.89 Other specified disorders of kidney and ureter ==